=== PATIENT | female | born 1940 | race Caucasian/White ===

== ENCOUNTER → 2016-12-02 | Outpatient (CLI) | payer OTHER ==
[~2016-12-02] MED LIST: ANAS1TAB19 PO; CALC500C70 PO; MELA1TAB5 PO; TRAZ50TA35 PO
[2016-12-02 14:34] VITALS: BP 132/77; PULSE 98; TEMP 36.8; O2SAT 94
--- NOTE | 2016-12-02 16:16 | Radiation Oncology Follow-Up ---
Radiation Oncology Follow-Up Date of Visit Dec 02, 2016. (Madeline Ureña PA-C) Reason For Visit One-month follow-up in cancer survivorship care plan (Madeline Ureña PA-C) Radiation Completion Date JOSEPH 09/29/16 (Madeline Ureña PA-C) Diagnosis (1) Breast cancer Onset Date: 09/11/2016 Histology Subtype: ductal Stage: l (A) Permanent Comment: STAGING: Right breast cancer, invasive ductal carcinoma, grade 1, ER/KS positive, Her2 negative, [id number], stage IA TREATMENT: 1. Biopsy of right breast - 09/11/2016 2. Planned Lumpectomy/SLN - Dr. Cardenas, 10/13/2016 3. Status post completion of radiation therapy 09/29/2016 received 3400 cGy utilizing JOSEPH HDR therapy 4. Oncotype DX score 22 5. Initiation of Arimidex therapy Last Edited By: Madeline Ureña on Dec 02, 2016 16:09 (Madeline Ureña PA-C) History of Present Illness Ms. Raines is a 76-year-old female who recently presented with an abnormal mammogram on 07/04/2016. Her bilateral screening mammogram revealed densities and calcifications in the right breast which required further spot and magnification views. She did undergo a right digital diagnostic mammogram with manjinder synthesis and right breast ultrasound on 08/11/2016 which revealed a subcentimeter suspicious mass in the right breast at the 1 o'clock position, a 5 mm complex mass in the anterior right breast at the 8 o'clock position and another suspicious lesion at the 3 o'clock position. She did undergo ultrasound -guided biopsies and stereotactic core biopsies of the lesions on 09/11/2016. Pathology revealed no evidence of disease for the biopsy at the 3 o'clock position and the 8 o'clock position. The biopsy of the irregular spiculated mass at 1 o'clock position did reveal invasive ductal carcinoma that was grade 1. The tumor was estrogen receptor positive, progesterone receptor positive and HER-[address] Cardenas discuss treatment options including a mastectomy versus lumpectomy and adjuvant radiation therapy and the patient elected for lumpectomy with adjuvant radiation therapy. Dr. Cardenas recommended consideration for accelerated partial breast radiation with JOSEPH HDR brachytherapy. We are now seeing the patient in consultation to discuss the role of radiation therapy. Overall, the patient relatively well. She has no significant complaints following her biopsy. She underwent the lumpectomy and sentinel lymph node biopsy. Final stage pT1c pN0M0 grade 1. JOSEPH catheter was placed and she will return to our office. Radiation was completed 10/29/2016. She received 3400 cGy. (Madeline Ureña PA-C) Interim History She's been doing well over the past month. She did develop an area of redness around the incision of the breast and also at the catheter site. This began approximately 2 weeks ago. She has associated itching. There is been no areas that were (and there is been no drainage. She has noted no masses or tenderness no change of the axilla. She's had no swelling of her arm. She has a follow-up appointment scheduled to see Dr. Cardenas next month. Currently mammography is not scheduled. She is on Arimidex and denies side effects. (Madeline Ureña PA-C) Allergies Coded Allergies: Naproxen (Verified Allergy, Severe, SHORTNESS OF BREATH, 10/02/16) and swelling of mouth Home Medications Scheduled Anastrozole (Arimidex), 1 TAB PO DAILY Calcium/Vitamin D (Os-Otis 500 Plus D), 1 TAB PO DAILY Trazodone Hcl (Trazodone), 50 MG PO HS Review of Systems Gastrointestinal: Symptoms: WNL, Constipation GI Comments: Constipation normal for patient Oral: Symptoms: No Problems Respiratory: Symptoms: WNL Other Respiratory: Patient still getting over cough from cold at [place] Urinary: Symptoms: WNL Skin: Symptoms: No Problems Other Skin Symptoms: Discolored darker per patient Breast: Right Upper Arm Measurement: 28.0 Right Mid Arm Measurement: 24.3 Right Wrist Measurement: 16.5 Left Upper Arm Measurement: 28.0 Left Mid Arm Measurement: 24.3 Left Wrist Measurement: 16.1 Arm Dominence: Right (Madeline Ureña PA-C) Physical Exam Vital Signs Date Time Temp Pulse Resp B/P Pulse Ox O2 Delivery O2 Flow Rate FiO2 12/02/16 14:34 36.8 98 16 132/77 94 Pain: Patient Pain Scale: 0 - 10 Initial Pain Intensity: 0.0 Fatigue: None General Appearance: no apparent distress Eyes: normal inspection, EOMI ENT: normal ENT inspection, hearing grossly normal Neck: no adenopathy Respiratory/Chest: lungs clear, no respiratory distress, no accessory muscle use Breast: Breast examination reveals well-healed incisions of the right breast. There is very mild erythema around the incision line of the breasts. There is also a similar mild erythema around the catheter site. There is resolving hyperpigmentation. Dryness of the skin is noted. There are no masses or tenderness and no change of the axilla. Using the [place] score cosmesis she has a the fear outcome currently. The left breast showed no masses or tenderness no axillary adenopathy. Cardiovascular: no gallop, no murmur, + extra beats Abdomen: non tender Extremities: no pedal edema Neurologic/Psychiatric: no motor/sensory deficits, alert, normal mood/affect Skin: warm/dry Lymphatic: no adenopathy (Madeline Ureña PA-C) Assessment & Plan Plan: Patient is also seen and examined by Dr. Ordonez. He has recommended that she use [id number] cortisone to the mild areas of erythema. It is felt that this is a side effect of the radiation. For the skin dryness I have recommended Aquaphor. She can use his bedtime. She'll be seeing Dr. Cardenas next month. At that time she can discuss with her future mammography which she will continue to have in [place]. She continues on the Arimidex. We discussed the ectopy that was noted today on her examination. She states that this has been noted in the past. I've asked her to make an appointment and review this with Dr. Byrne. She stated that she had an echocardiogram recently. She may benefit from a Holter monitor to evaluate the ectopy. She'll return to our office in 6 months. She will call if she has any questions or concerns in the interim. (Madeline Ureña PA-C) I agree with note created by Madeline Ureña PA-C. I reviewed the patient's chart and information with her. I have examined and evaluated the patient. I reviewed relevant clinical information and answered the patient's and/or family' s questions. (Veeral. Ordonez MD) Total Time In Follow-Up I spent 20 minutes speaking to the patient and performing examination. I spent 20 minutes reviewing information, preparing the survivorship document, and completing this note. (Madeline Ureña PA-C) I spent 15 minutes examining and counseling the patient. (Veeral. Ordonez MD) Copy To Claire Cardenas M.D.; Allegra Byrne M.D. Problem Qualifiers (1) Breast cancer: Breast location: upper inner quadrant of breast Patient gender: female Laterality: right Qualified Codes: C50.211 - Malignant neoplasm of upper- inner quadrant of right female breast
== END | disposition home or self-care (01) ==
LOC: C.ONC 14:25
PROVIDERS: ATTEND Radiology Radiation Oncology
DX: Z08 Encounter for follow-up examination after completed treatment for malignant neoplasm (principal); Z92.3 Personal history of irradiation; Z85.3 Personal history of malignant neoplasm of breast

== ENCOUNTER → 2017-06-02 | Outpatient (CLI) | payer OTHER ==
[2016-12-02 14:34] VITALS: BP 132/77; PULSE 98
[~2017-06-02] MED LIST changes: -MELA1TAB5 PO
[2017-06-02 13:33] VITALS: BP 117/67; PULSE 76; TEMP 36.9; O2SAT 98
--- NOTE | 2017-06-02 16:29 | Radiation Oncology Follow-Up ---
Radiation Oncology Follow-Up Date of Visit Jun 02, 2017. (Madeline Ureña PA-C) Reason For Visit 6 month follow-up (Madeline Ureña PA-C) Radiation Completion Date JOSEPH HDR on 09/29/16 (Madeline Ureña PA-C) Diagnosis (1) Breast cancer Status: Resolved Onset Date: 09/11/2016 Stage: l (A) Permanent Comment: STAGING: Right breast cancer, invasive ductal carcinoma, grade 1, ER/[place] positive, Her2 negative, [id number], stage IA TREATMENT: 1. Biopsy of right breast - 09/11/2016 2. Planned Lumpectomy/SLN - Dr. Cardenas, 10/13/2016 3. Status post completion of radiation therapy 09/29/2016 received 3400 cGy utilizing JOSEPH HDR therapy 4. Oncotype DX score 22 5. Initiation of Arimidex therapy Last Edited By: Madeline Ureña on Dec 02, 2016 16:09 (Madeline Ureña PA-C) History of Present Illness Ms. Raines is a 76-year-old female who recently presented with an abnormal mammogram on 07/04/2016. Her bilateral screening mammogram revealed densities and calcifications in the right breast which required further spot and magnification views. She did undergo a right digital diagnostic mammogram with manjinder synthesis and right breast ultrasound on 08/11/2016 which revealed a subcentimeter suspicious mass in the right breast at the 1 o'clock position, a 5 mm complex mass in the anterior right breast at the 8 o'clock position and another suspicious lesion at the 3 o'clock position. She did undergo ultrasound -guided biopsies and stereotactic core biopsies of the lesions on 09/11/2016. Pathology revealed no evidence of disease for the biopsy at the 3 o'clock position and the 8 o'clock position. The biopsy of the irregular spiculated mass at 1 o'clock position did reveal invasive ductal carcinoma that was grade 1. The tumor was estrogen receptor positive, progesterone receptor positive and HER-[address] Cardenas discuss treatment options including a mastectomy versus lumpectomy and adjuvant radiation therapy and the patient elected for lumpectomy with adjuvant radiation therapy. Dr. Cardenas recommended consideration for accelerated partial breast radiation with JOSEPH HDR brachytherapy. We are now seeing the patient in consultation to discuss the role of radiation therapy. Overall, the patient relatively well. She has no significant complaints following her biopsy. She underwent the lumpectomy and sentinel lymph node biopsy. Final stage pT1c pN0M0 grade 1. JOSEPH catheter was placed and she will return to our office. Radiation was completed 10/29/2016. She received 3400 cGy. (Madeline Ureña PA-C) Interim History She's been doing well over the past 6 months. She denies any changes to her breast. She has noted no masses or tenderness and no change of the axilla. She 's had no swelling of her arm. She does have joint pain especially of her arms since starting the Arimidex. She stated that when she sees her medical oncologist she is going to discuss possibly stopping the medication. She is up to date on mammography and had a mammogram at the [facility] in [place]. This was performed on 04/06/2017. This showed postsurgical changes in the right breast. No suspicious findings. Patient will be due for bilateral mammograms in approximately 3 months. (Madeline Ureña PA-C) Allergies Coded Allergies: Naproxen (Verified Allergy, Severe, SHORTNESS OF BREATH, 10/02/16) and swelling of mouth Home Medications Scheduled Anastrozole (Arimidex), 1 TAB PO DAILY Calcium/Vitamin D (Os-Otis 500 Plus D), 2 TAB PO DAILY Trazodone Hcl (Trazodone), 50 MG PO HS Review of Systems Gastrointestinal: Symptoms: WNL, Constipation GI Comments: Relates this to her arimidex - manageable at home; Oral: Symptoms: No Problems Respiratory: Symptoms: WNL Other Respiratory: Patient still getting over cough from cold at [facility] Urinary: Symptoms: Frequency Comments: But relates this to needing a hysterectomy - not concerned; Skin: Symptoms: No Problems Other Skin Symptoms: Discolored darker per patient Breast: Right Upper Arm Measurement: 28.5 Right Mid Arm Measurement: 24.5 Right Wrist Measurement: 16.5 Left Upper Arm Measurement: 28.0 Left Mid Arm Measurement: 23.0 Left Wrist Measurement: 16.0 Arm Dominence: Right (Madeline Ureña PA-C) Physical Exam Vital Signs Date Time Temp Pulse Resp B/P (MAP) Pulse Ox O2 Delivery O2 Flow Rate FiO2 06/02/17 13:33 36.9 76 20 117/67 98 Pain: Patient Pain Scale: 0 - 10 Initial Pain Intensity: 0.0 Fatigue: None General Appearance: no apparent distress Eyes: normal inspection, EOMI ENT: normal ENT inspection, hearing grossly normal Neck: no adenopathy, thyroid normal Respiratory/Chest: lungs clear, no respiratory distress, no accessory muscle use Breast: Breast examination reveals well-healed incisions of the right breast. There are no masses or tenderness and no axillary adenopathy. There are no skin retractions or nipple changes. Using the [place] score cosmesis she has a in excellent outcome. Left breast showed no masses or tenderness no axillary adenopathy. Cardiovascular: regular rate, rhythm, no gallop, no murmur Abdomen: normal bowel sounds, non tender Extremities: no pedal edema Neurologic/Psychiatric: no motor/sensory deficits, alert, normal mood/affect Skin: warm/dry (Madeline Ureña PA-C) Additional Studies Mammography as reviewed above. (Madeline Ureña PA-C) Assessment & Plan Plan: She was seen and examined by Dr. Ordonez. Continue with scheduled mammography. Continue follow-up with her primary care physician and medical oncologist. I've asked her to review with the medical oncologist possible change of medication rather than stopping medication. She'll discuss this with him she'll be seeing him next week. We asked her to return to our office in 1 year. She may call if she has any questions or concerns in the interim. (Madeline Ureña PA-C) I agree with note created by Madeline Ureña PA-C. I reviewed the patient's chart and information with her. I have examined and evaluated the patient. I reviewed relevant clinical information and answered the patient's and/or family' s questions. (Veeral. Ordonez MD) Total Time In Follow-Up I spent 20 minutes speaking to the patient and performing examination. I spent 15 minutes reviewing information and completing this note. (Madeline Ureña PA-C) I spent 15 minutes examining and counseling the patient. (Veeral. Ordonez MD) Copy To Claire Cardenas M.D.; Allegra Byrne M.D. Problem Qualifiers (1) Breast cancer: Breast location: upper inner quadrant of breast Estrogen receptor status: positive Patient sex: female Laterality: right Qualified Codes: C50.211 - Malignant neoplasm of upper-inner quadrant of right female breast; Z17.0 - Estrogen receptor positive status [ER+]
== END | disposition home or self-care (01) ==
LOC: C.ONC 13:08
PROVIDERS: ATTEND Physician Assistant Medical
DX: Z08 Encounter for follow-up examination after completed treatment for malignant neoplasm (principal); Z92.3 Personal history of irradiation; Z85.3 Personal history of malignant neoplasm of breast